=== PATIENT | female | born 1970 | race Caucasian/White ===

== ENCOUNTER 2017-12-08 08:05 | Day surgery (SDC) | payer BC, MEDICAID, OTHER ==
[~2017-12-08 08:05] MED LIST: Sodium Chloride 0.9% 10 ML Syringe FLUSH PRN; Sodium Chloride 0.9% 2.5 ML Syringe FLUSH PRN; Sugammadex Sodium 200 MG/2 ML VIAL ONE
--- NOTE | 2017-12-08 08:58 | PCM.PREANE ---
Preanesthetic Assessment - Anesthesia/Transfusion/Family Hx Anesthesia History: Prior Anesthesia Without Reaction Family History of Anesthesia Reaction: No Transfusion History: No Prior Transfusion(s) - Review of Systems General: No Symptoms Pulmonary: No Symptoms Cardiovascular: No Symptoms Gastrointestinal: No Symptoms Neurological: Headache Other: Reports: None - Physical Assessment NPO Status Date: 12/07/17 O2 Sat by Pulse Oximetry: 97 Respiratory Rate: 16 Vital Signs: Last Vital Signs Temp 36.6 C 12/08/17 08:16 Pulse 59 L 12/08/17 08:16 Resp 16 12/08/17 08:16 BP 124/78 12/08/17 08:16 Pulse Ox 97 12/08/17 08:16 Height: 1.6 m Weight: 75.75 kg ASA Class: 2 Mental Status: Alert & Oriented x3 Airway Class: Mallampati = 1 Dentition: Reports: Normal Dentition ROM/Head Extension: Full Lungs: Clear to Auscultation, Normal Respiratory Effort Cardiovascular: Regular Rate, Regular Rhythm - Lab Values: Laboratory Last Values WBC 8.85 K/uL (4.0-11.0) 12/07/17 11:36 RBC 4.56 M/uL (4.30-5.90) 12/07/17 11:36 Hgb 13.9 g/dL (12.0-16.0) 12/07/17 11:36 Hct 41.5 % (36.0-46.0) 12/07/17 11:36 MCV 91.0 fL (80.0-98.0) 12/07/17 11:36 MCH 30.5 pg (27.0-32.0) 12/07/17 11:36 MCHC 33.5 g/dL (31.0-37.0) 12/07/17 11:36 RDW Std Deviation 41.6 fl (28.0-62.0) 12/07/17 11:36 RDW Coeff of Evi 13 % (11.0-15.0) 12/07/17 11:36 Plt Count 359 K/uL (150-400) 12/07/17 11:36 MPV 10.10 fL (7.40-12.00) 12/07/17 11:36 Nucleated RBC % 0.0 /100WBC 12/07/17 11:36 Nucleated RBCs # 0 K/uL 12/07/17 11:36 Sodium 138 mmol/L (136-145) 12/07/17 11:36 Potassium 3.6 mmol/L (3.5-5.1) 12/07/17 11:36 Chloride 105 mmol/L (98-107) 12/07/17 11:36 Carbon Dioxide 26.3 mmol/L (21.0-32.0) 12/07/17 11:36 BUN 17 mg/dL (7.0-18.0) 12/07/17 11:36 Creatinine 1.1 mg/dL (0.6-1.0) H 12/07/17 11:36 Est Cr Clr Drug Dosing 51.18 mL/min 12/07/17 11:36 Estimated GFR (MDRD) 52.8 ml/min 12/07/17 11:36 Glucose 102 mg/dL (74-106) 12/07/17 11:36 Calcium 9.1 mg/dL (8.5-10.1) 12/07/17 11:36 HCG, Qual NEGATIVE (NEG) 12/07/17 11:36 Blood Type O POSITIVE 12/07/17 11:36 Antibody Screen NEGATIVE 12/07/17 11:36 - Allergies Allergies/Adverse Reactions: Allergies Allergy/AdvReac Type Severity Reaction Status Date / Time No Known Allergies Allergy Verified 12/08/17 08:46 - Anesthesia Plan Pre-Op Medication Ordered: None - Acknowledgements Anesthesia Type Planned: General Anesthesia Pt an Appropriate Candidate for the Planned Anesthesia: Yes Alternatives and Risks of Anesthesia Discussed w Pt/Guardian: Yes Pt/Guardian Understands and Agrees with Anesthesia Plan: Yes Additional Comments: PMH: hc of hep c, not active but not treated either, no longer needs thyroid replacement, has headache this am, wants no meds for it at this time PreAnesthesia Questionnaire Other HEENT History: wears glasses Cardiovascular History: Reports: Hypertension Respiratory History: Reports: Asthma Gastrointestinal History: Reports: Hiatal Hernia Other Gastrointestinal History: has Hepatitis C 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: Musculoskeletal History: Reports: Arthritis, Back Pain, Chronic, Fibromyalgia, Neck Pain, Chronic Neurological History: Reports: Migraines Psychiatric History: Reports: Anxiety, Depression - Past Surgical History Female Surgical History: Reports: Tubal Ligation - SUBSTANCE USE Smoking Status *Q: Current Every Day Smoker Tobacco Use Within Last Twelve Months: Cigarettes Days Per Week of Alcohol Use: 1 Recreational Drug Use History: No - HOME MEDS Home Medications: Home Meds Albuterol [Proventil HFA] 1 puff INH ASDIRECTED PRN 01/16/15 [History] busPIRone HCl [Buspirone HCl] 15 mg PO DAILY 01/16/15 [History] FLUoxetine HCl [Prozac] 20 mg PO DAILY 12/05/17 [History] Hydrochlorothiazide 25 mg PO DAILY 12/05/17 [History] - CURRENT (IN HOUSE) MEDS Current Meds: Current Medications Sodium Chloride (Saline Flush) 10 ml FLUSH ASDIRECTED PRN PRN Reason: Keep Vein Open Sodium Chloride (Saline Flush) 2.5 ml FLUSH ASDIRECTED PRN PRN Reason: Keep Vein Open
[2017-12-08] MEDS ORDERED: Acetaminophen 1,000 MG in Premix Bag 1 BAG IV ONE (10:27)
[2017-12-08] MEDS ORDERED: Midazolam 1 MG/ML 2 ML SDV ONE (11:28)
[2017-12-08] MEDS ORDERED: Propofol 200 MG/20 ML SDV ONE (11:28)
[2017-12-08] MEDS ORDERED: Ondansetron 4 MG/2 ML SDV ONE (11:29)
[2017-12-08] MEDS ORDERED: Lidocaine 2% 5 ML SDV ONE (11:29)
[2017-12-08] MEDS ORDERED: Glycopyrrolate 0.2 MG/ML SDV ONE (11:29)
[2017-12-08] MEDS ORDERED: Ketorolac 30 MG/ML SDV ONE (11:29)
[2017-12-08] MEDS ORDERED: fentaNYL 250 MCG/5 ML SDV ONE (11:29)
[2017-12-08] MEDS ORDERED: Rocuronium 10 MG/ML 10 ML Syringe ONE (11:29)
[2017-12-08] MEDS ORDERED: Morphine 4 MG/ML Syringe IVPUSH PRN (13:39)
[2017-12-08] MEDS ORDERED: Ondansetron 4 MG/2 ML SDV IVPUSH PRN (13:39)
[2017-12-08] MEDS ORDERED: Acetaminophen/oxyCODONE 325-5 MG Tab PO PRN (13:39)
[2017-12-08] MEDS ORDERED: Promethazine 25 MG/ML SDV IM PRN (13:39)
[2017-12-08] MEDS ORDERED: Ketorolac 30 MG/ML SDV IVPUSH ONE (13:39)
--- NOTE | 2017-12-08 13:44 | PCM.OPNOTE ---
- General Post-Op/Procedure Note Date of Surgery/Procedure: 12/08/17 Operative Procedure(s): TVH,bso Solyx TVTamd Cystoscopy Pre Op Diagnosis: Bleeding,MILADIS Post-Op Diagnosis: Same Anesthesia Technique: General ET Tube Primary Surgeon: Thang Alonzo Yield Analyst: Leslie Saldivar EBL in mLs: 100 Complications: None Condition: Good
[2017-12-08] MEDS ORDERED: HYDROmorphone 2 MG/ML SDV IVPUSH ONE (13:46)
[2017-12-08] MEDS: fentaNYL 100 MCG/2 ML SDV IVPUSH PRN ×2 (13:50→13:55)
--- NOTE | 2017-12-08 14:42 | PCM.POSTAN ---
POST ANESTHESIA ASSESSMENT - MENTAL STATUS Mental Status: Alert, Oriented - RESPIRATORY Respiratory Status: Respiratory Rate WNL, Airway Patent, O2 Saturation Stable - CARDIOVASCULAR CV Status: Pulse Rate WNL, Blood Pressure Stable - GASTROINTESTINAL GI Status: No Symptoms - PAIN Pain Score: 7 - POST OP HYDRATION Hydration Status: Adequate & Stable
[2017-12-08] MEDS: Acetaminophen/oxyCODONE 325-5 MG Tab PO PRN ×2 (15:43→20:04)
[2017-12-08] MEDS ORDERED: Ketorolac 30 MG/ML SDV IVPUSH PRN (20:00)
--- NOTE | 2017-12-09 04:36 | OR ---
SURGEON: Thang Alonzo MD DATE OF PROCEDURE: PREOPERATIVE DIAGNOSES: 1. Menometrorrhagia. 2. Stress urinary incontinence. POSTOPERATIVE DIAGNOSES: 1. Menometrorrhagia. 2. Stress urinary incontinence. OPERATION PERFORMED: Total vaginal hysterectomy, vaginal bilateral salpingo-oophorectomy, and tension- free TVT Solyx and cystoscopy. CAFETERIA MONITOR: WILVER Sharif ANESTHESIA: General endotracheal intubation INDICATION FOR SURGERY: Ray referred to the admit note. PROCEDURE IN DETAIL: The patient was brought to the OR, properly identified, and after adequate level of general anesthesia, the patient placed in lithotomy position, prepped and draped in sterile fashion as usual. A short weighted speculum was placed in the vagina, and straight catheter was used to empty the bladder and then a single- tooth tenaculum was applied to the cervix and then circular incision in the vaginal mucosa around the cervix was done. The posterior cul-de-sac was entered posteriorly, and the peritoneum and the vagina tagged with 2-0 Vicryl posteriorly. A short weighted speculum replaced with an extended long weighted speculum. The uterosacral ligament identified from both sides, clamped with a curved Zeppelin, transected, and suture ligated with 2-0 Vicryl pop-off. The same thing was done with the cardinal ligament and then the cervical vesicle space was entered, pushing the bladder away from the operative field and the peritoneal cavity was entered anteriorly. The broad ligament was clamped on both sides and transected and suture ligated with 2-0 Vicryl pop-off. The uterine vessel suture ligated at this step and then the round ligament was clamped with a curved Zeppelin, transected, and suture ligated with 2-0 Vicryl pop-off. Then, the uterus delivered posteriorly, and the superior pedicle on both sides clamped with 90 degree zeppelin and the tubes and ovary included with the specimen. The specimen was removed, and the superior pedicle tied twice with a free tie. Inspection of the operative field at this time shows no oozing, no bleeding. The uterosacral ligament and cardinal ligament anchored to the vagina at 3 and 9 o'clock for added vaginal support, and we proceeded to close the vagina with 2-0 Vicryl, interrupted [id number] sutures. Once that was finished, then attention was paid to the anterior vaginal wall and an inch beneath the urethra was infiltrated with copious amount of normal saline and incised midline with electrocautery and then the vaginal wall is dissected laterally in a tunneling fashion making room for the TVT, and then the TVT was in place with a due amount of tension to elevate the midurethral segment and then the incision in the anterior vaginal cuff was closed with 2-0 Vicryl continuous interlocking for hemostasis. While we were doing that, we asked the anesthesiologist to give the patient fluorescein, and cystoscopy was performed. The bladder was intact. Both ureteric orifices were seen with the dye coming from both of them, thus the patency of both ureters verified. Satisfied with these findings, the procedure was ended. The instrument and sponge count were correct. The patient tolerated the procedure well, went to recovery room in stable general condition. MAGDALENA OSEI /[id number]
[2017-12-09] MEDS: Acetaminophen/oxyCODONE 325-5 MG Tab PO PRN (05:22)
[2017-12-09 08:25] VITALS: BP 104/63
--- NOTE | 2017-12-09 09:19 | PCM.SURGPN ---
- General Info Date of Service: 12/09/17 POD#: 1 Functional Status: Reports: Pain Controlled - Review of Systems General: Reports: No Symptoms HEENT: Reports: No Symptoms Pulmonary: Reports: No Symptoms Cardiovascular: Reports: No Symptoms Gastrointestinal: Reports: No Symptoms Genitourinary: Reports: No Symptoms Musculoskeletal: Reports: No Symptoms Skin: Reports: No Symptoms Neurological: Reports: No Symptoms Psychiatric: Reports: No Symptoms - Patient Data Vitals - Most Recent: Last Vital Signs Temp 36.4 C 12/09/17 08:00 Pulse 54 L 12/09/17 08:00 Resp 18 12/09/17 08:00 BP 104/63 12/09/17 08:00 Pulse Ox 91 L 12/09/17 08:00 Weight - Most Recent: 75.75 kg I&O - Last 24 Hours: Intake & Output 12/08/17 12/09/17 12/09/17 22:59 06:59 14:59 Intake Total 640 Output Total 500 Balance 140 Lab Results Last 24 Hrs: Laboratory Results - last 24 hr 12/09/17 12/09/17 Range/Units 05:18 05:18 WBC 10.14 (4.0-11.0) K/uL RBC 3.91 L (4.30-5.90) M/uL Hgb 11.9 L (12.0-16.0) g/dL Hct 36.0 (36.0-46.0) % MCV 92.1 (80.0-98.0) fL MCH 30.4 (27.0-32.0) pg MCHC 33.1 (31.0-37.0) g/dL RDW Std Deviation 42.5 (28.0-62.0) fl RDW Coeff of Evi 13 (11.0-15.0) % Plt Count 301 (150-400) K/uL MPV 10.20 (7.40-12.00) fL Neut % (Auto) 58.5 (48.0-80.0) % Lymph % (Auto) 27.9 (16.0-40.0) % Ada % (Auto) 9.5 (0.0-15.0) % Eos % (Auto) 3.8 (0.0-7.0) % Baso % (Auto) 0.3 (0.0-1.5) % Neut # (Auto) 5.9 H (1.4-5.7) K/uL Lymph # (Auto) 2.8 H (0.6-2.4) K/uL [place] # (Auto) 1.0 H (0.0-0.8) K/uL Eos # (Auto) 0.4 (0.0-0.7) K/uL Baso # (Auto) 0.0 (0.0-0.1) K/uL Nucleated RBC % 0.0 /100WBC Nucleated RBCs # 0 K/uL Sodium 136 (136-145) mmol/L Potassium 3.4 L (3.5-5.1) mmol/L Chloride 103 (98-107) mmol/L Carbon Dioxide 27.4 (21.0-32.0) mmol/L BUN 18 (7.0-18.0) mg/dL Creatinine 1.1 H (0.6-1.0) mg/dL Est Cr Clr Drug Dosing 51.18 mL/min Estimated GFR (MDRD) 52.8 ml/min Glucose 125 H (74-106) mg/dL Calcium 8.5 (8.5-10.1) mg/dL Med Orders - Current: Current Medications Fentanyl (Sublimaze) 50 mcg IVPUSH Q5M PRN PRN Reason: Pain (severe 7-10) Stop: 12/09/17 13:46 Last Admin: 12/08/17 13:55 Dose: 50 mcg Ketorolac Tromethamine (Toradol) 30 mg IVPUSH Q6H PRN PRN Reason: Pain (severe 7-10) Stop: 12/13/17 20:01 Morphine Sulfate (Morphine) 4 mg IVPUSH Q2H PRN PRN Reason: Pain (severe 7-10) Ondansetron HCl (Zofran) 4 mg IVPUSH Q6H PRN PRN Reason: Nausea/Vomiting Oxycodone/Acetaminophen (Percocet 325-5 Mg) 1 tab PO Q4H PRN PRN Reason: Pain (moderate 4-6) Oxycodone/Acetaminophen (Percocet 325-5 Mg) 2 tab PO Q4H PRN PRN Reason: Pain (moderate 4-6) Last Admin: 12/09/17 05:22 Dose: 2 tab Promethazine HCl (Phenergan) 25 mg IM Q6H PRN PRN Reason: Nausea/Vomiting Sodium Chloride (Saline Flush) 10 ml FLUSH ASDIRECTED PRN PRN Reason: Keep Vein Open Sodium Chloride (Saline Flush) 2.5 ml FLUSH ASDIRECTED PRN PRN Reason: Keep Vein Open Discontinued Medications Fentanyl (Sublimaze) Confirm Administered Dose 250 mcg .ROUTE .STK-MED ONE Stop: 12/08/17 11:30 Glycopyrrolate (Robinul) Confirm Administered Dose 0.2 mg .ROUTE .STK-MED ONE Stop: 12/08/17 11:30 Hydromorphone HCl (Dilaudid) 2 mg IVPUSH ONETIME ONE Stop: 12/08/17 13:47 Last Admin: 12/08/17 14:10 Dose: 2 mg Acetaminophen 1,000 mg/ Premix 100 mls @ 400 mls/hr IV NOW ONE Stop: 12/08/17 10:41 Last Admin: 12/08/17 10:35 Dose: 400 mls/hr Ketorolac Tromethamine (Toradol) Confirm Administered Dose 30 mg .ROUTE .STK- MED ONE Stop: 12/08/17 11:30 Ketorolac Tromethamine (Toradol) 30 mg IVPUSH ONETIME ONE Stop: 12/08/17 13:40 Last Admin: 12/08/17 16:51 Dose: Not Given Lidocaine (Xylocaine-Mpf 2%) Confirm Administered Dose 5 ml .ROUTE .STK-MED ONE Stop: 12/08/17 11:30 Midazolam HCl (Versed 1 Mg/Ml) Confirm Administered Dose 2 mg .ROUTE .STK-MED ONE Stop: 12/08/17 11:29 Ondansetron HCl (Zofran) Confirm Administered Dose 4 mg .ROUTE .STK-MED ONE Stop: 12/08/17 11:30 Propofol (Diprivan 20 Ml) Confirm Administered Dose 200 mg .ROUTE .STK-MED ONE Stop: 12/08/17 11:29 Rocuronium [place] (Zemuron) Confirm Administered Dose 100 mg .ROUTE .STK-MED ONE Stop: 12/08/17 11:30 - Exam Wound/Incisions: Healing Well General: Alert, Oriented HEENT: Pupils Equal Neck: Supple Lungs: Clear to Auscultation, Normal Respiratory Effort Cardiovascular: Regular Rate, Regular Rhythm GI/Abdominal Exam: Normal Bowel Sounds, Soft, Non-Tender, No Organomegaly, No Distention, No Abnormal Bruit, No Mass, Pelvis Stable Extremities: Normal Inspection, Normal Range of Motion, Non-Tender, No Pedal Edema, Normal Capillary Refill Skin: Warm, Dry, Intact Neurological: No New Focal Deficit Psy/Mental Status: Alert, Normal Affect, Normal Mood - Problem List Review Problem List Initiated/Reviewed/Updated: Yes - My Orders Last 24 Hours: Active Orders 24 hr Category Date Time Status Patient Status [ADT] Routine ADT 12/08/17 13:39 Active Bradycardia-Neuroaxis [employer] [RC] ROUTINE Care 12/08/17 13:46 Active Hypertension-Neuroaxis [employer] [RC] ROUTINE Care 12/08/17 13:46 Active Hypotension-Neuroaxis [employer] [RC] ROUTINE Care 12/08/17 13:46 Active Notify Provider Vital Signs [RC] ASDIRECTED Care 12/08/17 13:39 Active RT Incentive Spirometry [RC] Q2HWA Care 12/08/17 13:39 Active Up With Assistance [RC] PER UNIT ROUTINE Care 12/08/17 13:39 Active Up ad [place] [RC] PER UNIT ROUTINE Care 12/08/17 13:39 Active Regular Diet [DIET] Diet 12/08/17 Dinner Active Acetaminophen/oxyCODONE [Percocet 325-5 MG] Med 12/08/17 13:39 Active 1 tab PO Q4H PRN Acetaminophen/oxyCODONE [Percocet 325-5 MG] Med 12/08/17 13:39 Active 2 tab PO Q4H PRN Ketorolac [Toradol] Med 12/08/17 20:00 Active 30 mg IVPUSH Q6H PRN Morphine Med 12/08/17 13:39 Active 4 mg IVPUSH Q2H PRN Ondansetron [Zofran] Med 12/08/17 13:39 Active 4 mg IVPUSH Q6H PRN Promethazine [Phenergan] Med 12/08/17 13:39 Active 25 mg IM Q6H PRN fentaNYL [Sublimaze] Med 12/08/17 13:46 Active 50 mcg IVPUSH Q5M PRN Peripheral IV Discontinue [OM.PC] Routine Oth 12/08/17 13:39 Ordered Sequential Compression Device [OM.PC] Per Unit Routine Oth 12/08/17 13:39 Ordered Resuscitation Status Routine Resus Stat 12/08/17 13:39 Ordered Medication Orders Fentanyl (Sublimaze) 50 mcg IVPUSH Q5M PRN PRN Reason: Pain (severe 7-10) Stop: 12/09/17 13:46 Last Admin: 12/08/17 13:55 Dose: 50 mcg Admin: 12/08/17 13:50 Dose: 50 mcg Ketorolac Tromethamine (Toradol) 30 mg IVPUSH Q6H PRN PRN Reason: Pain (severe 7-10) Stop: 12/13/17 20:01 Morphine Sulfate (Morphine) 4 mg IVPUSH Q2H PRN PRN Reason: Pain (severe 7-10) Ondansetron HCl (Zofran) 4 mg IVPUSH Q6H PRN PRN Reason: Nausea/Vomiting Oxycodone/Acetaminophen (Percocet 325-5 Mg) 1 tab PO Q4H PRN PRN Reason: Pain (moderate 4-6) Oxycodone/Acetaminophen (Percocet 325-5 Mg) 2 tab PO Q4H PRN PRN Reason: Pain (moderate 4-6) Last Admin: 12/09/17 05:22 Dose: 2 tab Admin: 12/08/17 20:04 Dose: 2 tab Admin: 12/08/17 15:43 Dose: 2 tab Promethazine HCl (Phenergan) 25 mg IM Q6H PRN PRN Reason: Nausea/Vomiting Sodium Chloride (Saline Flush) 10 ml FLUSH ASDIRECTED PRN PRN Reason: Keep Vein Open Sodium Chloride (Saline Flush) 2.5 ml FLUSH ASDIRECTED PRN PRN Reason: Keep Vein Open - Assessment Assessment (Free Text/Narrative):: Status post total vaginal hysterectomy and vaginal bilateral salpingo- oophorectomy and TVT for menometrorrhagia and stress urinary incontinence postoperative day 1 the patient is doing well with STABLE LAB WORK IS WITHIN NORMAL LIMITS SHE IS VOIDING WITHOUT ANY PROBLEM SHE HAVE MINIMUM BLEEDING AND SHE IS ON REGULAR DIET TOLERATED VERY WELL - Plan Plan (Free Text/Narrative):: I'm sending the patient home today prescription for Percocet 7.5/325 was given to the patient for postoperative pain postoperative instruction is given to her she is to come to the office in 10 days for postoperative examination and follow
--- NOTE | 2017-12-09 09:20 | PCM.DCSUM1 ---
Discharge Summary - Discharge Data Discharge Date: 12/09/17 Discharge Disposition: Home, Self-Care 01 Condition: Good - Patient Summary/Data Operative Procedure(s) Performed: TVH,bso Solyx TVTamd Cystoscopy - Patient Instructions Diet: Usual Diet as Tolerated Driving: Do Not Drive Showering/Bathing: May Shower Notify Provider of: Fever, Increased Pain, Nausea and/or Vomiting - Discharge Plan Prescriptions/Med Rec: oxyCODONE HCl/Acetaminophen [Percocet 7.5-325 mg Tablet] 1 each PO Q4H PRN #15 tablet PRN Reason: Pain Home Medications: Home Meds Albuterol [Proventil HFA] 1 puff INH ASDIRECTED PRN 01/16/15 [History] busPIRone HCl [Buspirone HCl] 15 mg PO DAILY 01/16/15 [History] FLUoxetine HCl [Prozac] 20 mg PO DAILY 12/05/17 [History] Hydrochlorothiazide 25 mg PO DAILY 12/05/17 [History] oxyCODONE HCl/Acetaminophen [Percocet 7.5-325 mg Tablet] 1 each PO Q4H PRN #15 tablet 12/09/17 [Rx] Patient Handouts: Acetaminophen; Oxycodone tablets, Vaginal Hysterectomy, Care After Referrals: Thang Alonzo MD [Physician] - 12/19/17 10:15 am - General Info Date of Service: 12/09/17 Functional Status: Reports: Pain Controlled - Review of Systems General: Reports: No Symptoms HEENT: Reports: No Symptoms Pulmonary: Reports: No Symptoms Cardiovascular: Reports: No Symptoms Gastrointestinal: Reports: No Symptoms Genitourinary: Reports: No Symptoms Musculoskeletal: Reports: No Symptoms Skin: Reports: No Symptoms Neurological: Reports: No Symptoms Psychiatric: Reports: No Symptoms - Patient Data Vitals - Most Recent: Last Vital Signs Temp 36.4 C 12/09/17 08:00 Pulse 54 L 12/09/17 08:00 Resp 18 12/09/17 08:00 BP 104/63 12/09/17 08:00 Pulse Ox 91 L 12/09/17 08:00 Weight - Most Recent: 75.75 kg I&O - Last 24 hours: Intake & Output 12/08/17 12/09/17 12/09/17 22:59 06:59 14:59 Intake Total 640 Output Total 500 Balance 140 Lab Results - Last 24 hrs: Laboratory Results - last 24 hr 18 18 Range/Units 05:18 05:18 WBC 10.14 (4.0-11.0) K/uL RBC 3.91 L (4.30-5.90) M/uL Hgb 11.9 L (12.0-16.0) g/dL Hct 36.0 (36.0-46.0) % MCV 92.1 (80.0-98.0) fL MCH 30.4 (27.0-32.0) pg MCHC 33.1 (31.0-37.0) g/dL RDW Std Deviation 42.5 (28.0-62.0) fl RDW Coeff of Evi 13 (11.0-15.0) % Plt Count 301 (150-400) K/uL MPV 10.20 (7.40-12.00) fL Neut % (Auto) 58.5 (48.0-80.0) % Lymph % (Auto) 27.9 (16.0-40.0) % [place] % (Auto) 9.5 (0.0-15.0) % Eos % (Auto) 3.8 (0.0-7.0) % Baso % (Auto) 0.3 (0.0-1.5) % Neut # (Auto) 5.9 H (1.4-5.7) K/uL Lymph # (Auto) 2.8 H (0.6-2.4) K/uL [place] # (Auto) 1.0 H (0.0-0.8) K/uL Eos # (Auto) 0.4 (0.0-0.7) K/uL Baso # (Auto) 0.0 (0.0-0.1) K/uL Nucleated RBC % 0.0 /100WBC Nucleated RBCs # 0 K/uL Sodium 136 (136-145) mmol/L Potassium 3.4 L (3.5-5.1) mmol/L Chloride 103 (98-107) mmol/L Carbon Dioxide 27.4 (21.0-32.0) mmol/L BUN 18 (7.0-18.0) mg/dL Creatinine 1.1 H (0.6-1.0) mg/dL Est Cr Clr Drug Dosing 51.18 mL/min Estimated GFR (MDRD) 52.8 ml/min Glucose 125 H (74-106) mg/dL Calcium 8.5 (8.5-10.1) mg/dL Med Orders - Current: Current Medications Fentanyl (Sublimaze) 50 mcg IVPUSH Q5M PRN PRN Reason: Pain (severe 7-10) Stop: 12/09/17 13:46 Last Admin: 12/08/17 13:55 Dose: 50 mcg Ketorolac Tromethamine (Toradol) 30 mg IVPUSH Q6H PRN PRN Reason: Pain (severe 7-10) Stop: 12/13/17 20:01 Morphine Sulfate (Morphine) 4 mg IVPUSH Q2H PRN PRN Reason: Pain (severe 7-10) Ondansetron HCl (Zofran) 4 mg IVPUSH Q6H PRN PRN Reason: Nausea/Vomiting Oxycodone/Acetaminophen (Percocet 325-5 Mg) 1 tab PO Q4H PRN PRN Reason: Pain (moderate 4-6) Oxycodone/Acetaminophen (Percocet 325-5 Mg) 2 tab PO Q4H PRN PRN Reason: Pain (moderate 4-6) Last Admin: 12/09/17 05:22 Dose: 2 tab Promethazine HCl (Phenergan) 25 mg IM Q6H PRN PRN Reason: Nausea/Vomiting Sodium Chloride (Saline Flush) 10 ml FLUSH ASDIRECTED PRN PRN Reason: Keep Vein Open Sodium Chloride (Saline Flush) 2.5 ml FLUSH ASDIRECTED PRN PRN Reason: Keep Vein Open Discontinued Medications Fentanyl (Sublimaze) Confirm Administered Dose 250 mcg .ROUTE .STK-MED ONE Stop: 12/08/17 11:30 Glycopyrrolate (Robinul) Confirm Administered Dose 0.2 mg .ROUTE .STK-MED ONE Stop: 12/08/17 11:30 Hydromorphone HCl (Dilaudid) 2 mg IVPUSH ONETIME ONE Stop: 12/08/17 13:47 Last Admin: 12/08/17 14:10 Dose: 2 mg Acetaminophen 1,000 mg/ Premix 100 mls @ 400 mls/hr IV NOW ONE Stop: 12/08/17 10:41 Last Admin: 12/08/17 10:35 Dose: 400 mls/hr Ketorolac Tromethamine (Toradol) Confirm Administered Dose 30 mg .ROUTE .STK- MED ONE Stop: 12/08/17 11:30 Ketorolac Tromethamine (Toradol) 30 mg IVPUSH ONETIME ONE Stop: 12/08/17 13:40 Last Admin: 12/08/17 16:51 Dose: Not Given Lidocaine (Xylocaine-Mpf 2%) Confirm Administered Dose 5 ml .ROUTE .STK-MED ONE Stop: 12/08/17 11:30 Midazolam HCl (Versed 1 Mg/Ml) Confirm Administered Dose 2 mg .ROUTE .STK-MED ONE Stop: 12/08/17 11:29 Ondansetron HCl (Zofran) Confirm Administered Dose 4 mg .ROUTE .STK-MED ONE Stop: 12/08/17 11:30 Propofol (Diprivan 20 Ml) Confirm Administered Dose 200 mg .ROUTE .STK-MED ONE Stop: 12/08/17 11:29 Rocuronium [place] (Zemuron) Confirm Administered Dose 100 mg .ROUTE .STK-MED ONE Stop: 12/08/17 11:30 - Exam General: Reports: Alert, Oriented HEENT: Reports: Pupils Equal, Pupils Reactive, EOMI, Mucous Membr. Moist/[place] Neck: Reports: Supple Lungs: Reports: Clear to Auscultation, Normal Respiratory Effort Cardiovascular: Reports: Regular Rate, Regular Rhythm GI/Abdominal Exam: Normal Bowel Sounds, Soft, Non-Tender, No Organomegaly, No Distention, No Abnormal Bruit, No Mass, Pelvis Stable (Female) Exam: Normal External Exam, Normal Speculum Exam, Normal Bimanual Exam Rectal (Female) Exam: Normal Exam, Normal Rectal Tone Back Exam: Reports: Normal Inspection, Full Range of Motion Extremities: Normal Inspection, Normal Range of Motion, Non-Tender, No Pedal Edema, Normal Capillary Refill Skin: Reports: Warm, Dry, Intact Wound/Incisions: Reports: Healing Well Neurological: Reports: No New Focal Deficit Psy/Mental Status: Reports: Alert, Normal Affect, Normal Mood
== END 2017-12-09 09:38 | disposition home or self-care (01) ==
LOC: MW.SDS 08:05 → MW.MS 15:11 → MW.SDS 12-09 09:38
PROVIDERS: ATTEND Obstetrics & Gynecology
DX: D25.1 Intramural leiomyoma of uterus (principal); N39.3 Stress incontinence (female) (male); N83.292 Other ovarian cyst, left side; N83.291 Other ovarian cyst, right side; N92.1 Excessive and frequent menstruation with irregular cycle; F17.210 Nicotine dependence, cigarettes, uncomplicated; Z79.899 Other long term (current) drug therapy
CPT/HCPCS: 36415; 57288; 58260; 80048; 84703; 85025; 85027; 86850; 86900; 86901; A9270; J1170; J1885; J2250; J2405; J3010; 88307; J2704

== ENCOUNTER 2018-08-15 22:18 | Emergency (ER) | payer OTHER ==
[2018-08-15] MEDS ORDERED: Diphtheria,Pertussis(Acell),Tetanus Vaccine 0.5 ML Syringe IM ONE (22:46)
[2018-08-15] MEDS ORDERED: Cephalexin 500 MG Cap PO ONE (22:46)
[2018-08-15] MEDS ORDERED: Lidocaine 1% 10 ML MDV INJECT ONE (22:46)
[2018-08-15] MEDS ORDERED: Bacitracin Oint 1 GM U/D Packet TOP ONE (22:47)
--- NOTE | 2018-08-15 22:51 | EDM.PDOC ---
ED HPI GENERAL MEDICAL PROBLEM - General Chief Complaint: Laceration Stated Complaint: PT HURT RT HAND Time Seen by Provider: 08/15/18 22:40 - History of Present Illness INITIAL COMMENTS - FREE TEXT/NARRATIVE: HISTORY AND PHYSICAL: History of present illness: The patient is a 48-year-old female with no stated existing systemic complaints today who had a normal day until she was trying to get keys out of the event technician of a car that was stopped and she cut her right index finger and the base of her third finger on the right hand. Patient is unsure of her last tetanus shot and thinks it might be 5 years ago and she is right-hand dominant. She had no complaints of any systemic problems prior to these events and complains of pain at the lacerations and seeks evaluation. She is able to flex and extend at all of her digits but she says that the tip of her index finger feels a little bit numb. She has no other injuries or complaints. Review of systems: As per history of present illness and below otherwise all systems reviewed and negative. Past medical history: As per history of present illness and as reviewed below otherwise noncontributory. Surgical history: As per history of present illness and as reviewed below otherwise noncontributory. Social history: No reported history of drug or alcohol abuse. Family history: As per history of present illness and as reviewed below otherwise noncontributory. Physical exam: General: Well-developed well-nourished female who is nontoxic and vital signs reviewed by me HEENT: Atraumatic, normocephalic, negative for conjunctival pallor or scleral icterus, mucous membranes moist, throat clear, neck supple, nontender, trachea midline. Lungs: Clear to auscultation, breath sounds equal bilaterally, chest nontender. Heart: S1S2, regular rate and rhythm no overt murmurs. Abdomen: Soft, nondistended, nontender and bowel sounds are normoactive Pelvis: Deferred Genitourinary: Deferred. Rectal: Deferred. Extremities: Atraumatic full range of motion of all extremities with the exception of the right hand. At the right index finger over the DIP flexure there is a 3 cm laceration which is jagged and irregular that goes to the subcutaneous fat. The patient has intact flexion at the superficialis and profundus tendons and there is no active bleeding. The tissue is very damaged in this region. There is a second laceration measuring 3 cm at the base of the third digit over the MCP which is more linear and only extend to the subcutaneous tissue. All other digits are intact and the patient has full flexion-extension at all digits. Cap refill Neurovascular unremarkable. Neuro: Awake, alert, oriented. Cranial nerves II through XII unremarkable. Cerebellum unremarkable. Motor and sensory unremarkable throughout. Exam nonfocal. Diagnostics: X-ray right hand Therapeutics: Keflex bacitracin and dressings suture repair Tdap Procedure note: After x-ray was performed and the wound was irrigated and cleansed by nursing 1% lidocaine without epinephrine was infused in each of the lacerations and the wound was explored. The wound at the base of the third MCP was closed in a simple interrupted fashion of sutures for a total number of # 6 sutures of 4-0 chromic. The second laceration at the flexure of the index finger was then explored and no foreign bodies were appreciated. On exploration the flexor tendon was visualized and the patient was able to engage with my direct visualization and there appeared to be no injury to this. The skin edges were reapproximated using a total number of # 6 Singh of 4-0 chromic in a simple interrupted fashion. The wound in this region was very macerated and irregular so the best reapproximation was achieved with minimal debridement. The patient tolerated the procedure well and there are no complications and bacitracin and a dressing were placed on both lacerations. Impression: 2 lacerations of right hand, index finger and base of middle finger Definitive disposition and diagnosis as appropriate pending reevaluation and review of above. Right Hand Pain Score (Numeric/FACES): 6 - Related Data Allergies Allergy/AdvReac Type Severity Reaction Status Date / Time No Known Allergies Allergy Verified 08/15/18 22:37 Home Meds: Home Meds . 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: Reports: Musculoskeletal History: Reports: Arthritis, Back Pain, Chronic, Fibromyalgia, Neck Pain, Chronic Neurological History: Reports: Migraines Psychiatric History: Reports: Anxiety, Bipolar, Depression, PTSD, Schizophrenia Endocrine/Metabolic History: Reports: None Hematologic History: Reports: None Immunologic History: Reports: None Oncologic (Cancer) History: Reports: None Dermatologic History: Reports: None - Infectious Disease History Infectious Disease History: Reports: Hepatitis C - Past Surgical History Head Surgeries/Procedures: Reports: None HEENT Surgical History: Reports: None Cardiovascular Surgical History: Reports: None Respiratory Surgical History: Reports: None GI Surgical History: Reports: None Female Surgical History: Reports: Tubal Ligation Endocrine Surgical History: Reports: None Neurological Surgical History: Reports: None Musculoskeletal Surgical History: Reports: None Oncologic Surgical History: Reports: None Dermatological Surgical History: Reports: None Social & Family History - Family History Family Medical History: Noncontributory - Tobacco Use Smoking Status *Q: Current Some Day Smoker Years of Tobacco use: 25 Packs/Tins Daily: 0.5 - Caffeine Use Caffeine Use: Reports: None - Alcohol Use Days Per Week of Alcohol Use: 1 Number of Drinks Per Day: 1 Total Drinks Per Week: 1 - Recreational Drug Use Recreational Drug Use: No ED ROS GENERAL - Review of Systems Review Of Systems: ROS reveals no pertinent complaints other than HPI. ED EXAM, SKIN/RASH Exam: See Below (See dictation) Course - Vital Signs Last Recorded V/S: Last Vital Signs Temp 36.6 C 08/15/18 22:32 Pulse 86 08/15/18 22:32 Resp 18 08/15/18 22:32 BP 114/96 H 08/15/18 22:32 Pulse Ox 98 08/15/18 22:32 - Orders/Labs/Meds Orders: Active Orders 24 hr Category Date Time Status Vaccines to be Administered [RC] PER UNIT ROUTINE Care 08/15/18 22:47 Active Hand Comp Min 3V Rt [CR] Stat Exams 08/15/18 22:46 Taken Meds: Medications Discontinued Medications Generic Name Dose Route Start Last Admin Trade Name Yogi PRN Reason Stop Dose Admin Hydrocodone Bitart/Acetaminophen 1 tab 08/15/18 23:53 08/16/18 00:01 Randle 325-5 Mg PO 08/15/18 23:54 1 tab ONETIME ONE Administration Bacitracin 1 dose 08/15/18 22:47 08/16/18 00:11 Bacitracin Oint 1 Gm TOP 08/15/18 22:48 1 dose ONETIME ONE Administration Cephalexin 500 mg 08/15/18 22:46 08/15/18 23:08 Keflex PO 08/15/18 22:47 500 mg ONETIME ONE Administration Diphtheria/Tetanus/Acell Pertussis 0.5 ml 08/15/18 22:46 08/15/18 23:04 Adacel IM 08/15/18 22:47 0.5 ml .ONCE ONE Administration Lidocaine HCl Confirm 08/15/18 23:07 08/16/18 00:02 Xylocaine-Mpf 1% Administered 08/15/18 23:08 5 mls/hr Dose Administration 5 mls @ as directed .ROUTE .STK-MED ONE Lidocaine HCl 10 ml 08/15/18 22:46 08/16/18 00:03 Xylocaine 1% INJECT 08/15/18 22:47 Not Given ONETIME ONE Departure - Departure Time of Disposition: 01:03 Disposition: Home, Self-Care 01 Condition: Good Clinical Impression: Hand laceration Qualifiers: Encounter type: initial encounter Foreign body presence: without foreign body Laterality: right Qualified Code(s): S61.411A - Laceration without foreign body of right hand, initial encounter - Discharge Information Referrals: PCP,None [Primary Care Provider] - Forms: ED Department Discharge Additional Instructions: The following information is given to patients seen in the emergency department who are being discharged to home. This information is to outline your options for follow-up care. We provide all patients seen in our emergency department with a follow-up referral. The need for follow-up, as well as the timing and circumstances, are variable depending upon the specifics of your emergency department visit. If you don't have a primary care physician on staff, we will provide you with a referral. We always advise you to contact your personal physician following an emergency department visit to inform them of the circumstance of the visit and for follow-up with them and/or the need for any referrals to a consulting specialist. The emergency department will also refer you to a specialist when appropriate. This referral assures that you have the opportunity for followup care with a specialist. All of these measure are taken in an effort to provide you with optimal care, which includes your followup. Under all circumstances we always encourage you to contact your private physician who remains a resource for coordinating your care. When calling for followup care, please make the office aware that this follow-up is from your recent emergency room visit. If for any reason you are refused follow-up, please contact the [facility] emergency department at and ask to speak to the emergency department charge nurse. [facility] Specialty clinic-Plastic Surgery and Hand Surgery Professional [address] [address] The sutures that were placed today will dissolve on their own or you can have them removed as you choose in 10 days. Keep the dressing that was placed on in the ED for the next 24 hours and then remove and cleanse with mild soap and water pat dry and apply bacitracin or Neosporin. Please leave open to air as much as possible and do not use Band-Aids. If you must cover the areas please use gauze dressing. Take antibiotics until they're finished and please call and schedule a follow-up appointment with our hand surgeon. You may call tomorrow morning for this appointment. Return to ER as needed as discussed. - My Orders Last 24 Hours: My Active Orders 08/15/18 22:46 Hand Comp Min 3V Rt [CR] Stat 08/15/18 22:47 Vaccines to be Administered [RC] PER UNIT ROUTINE - Assessment/Plan Last 24 Hours: My Active Orders 08/15/18 22:46 Hand Comp Min 3V Rt [CR] Stat 08/15/18 22:47 Vaccines to be Administered [RC] PER UNIT ROUTINE
[2018-08-15] MEDS ORDERED: Acetaminophen/HYDROcodone 325-5 MG Tab PO ONE (23:53)
[2018-08-16 01:32] VITALS: BP 140/89
--- NOTE | 2018-08-16 13:12 | CR ---
EXAM DATE: 08/15/18 PATIENT'S AGE: 48 Patient: ROLF GARCIA Facility: [place], [place] Site . Site : 1970 Study: XRay Extremity Right hand [id number]/[id number] 11:12:12 PM Ordering Physician: Inder Belle Final Report: Indication: Injury and pain Technique: views Comparison: None Findings: Bones: Alignment is normal. No fractures or bone lesions. Joint spaces: Mild arthritic changes are present in the IP joints. Soft tissues: Unremarkable. Impression: No sign of acute injury. Dictated by Saqib Baker MD @ Aug 15 2018 11:43PM (Electronic Signature) Report Signed by Proxy. ALLYSSA
== END 2018-08-16 01:15 | disposition home or self-care (01) ==
LOC: MW.ED 22:18
DX: S61.210A Laceration without foreign body of right index finger without damage to nail, initial encounter (principal); S61.411A Laceration without foreign body of right hand, initial encounter; I10 Essential (primary) hypertension; F17.210 Nicotine dependence, cigarettes, uncomplicated; Z23 Encounter for immunization; Z98.51 Tubal ligation status; W26.8XXA Contact with other sharp object(s), not elsewhere classified, initial encounter
CPT/HCPCS: 12002; 73130; 90471; 90715; 99283; A9270

== ENCOUNTER 2019-04-19 01:20 | Emergency (ER) | payer MEDICAID, OTHER ==
[2019-04-19] MEDS ORDERED: Sodium Chloride 0.9% 2.5 ML Syringe FLUSH PRN (01:40)
[2019-04-19] MEDS ORDERED: Sodium Chloride 0.9% 10 ML Syringe FLUSH PRN (01:40)
[2019-04-19] MEDS ORDERED: Ketorolac 30 MG/ML SDV IVPUSH ONE (01:41)
[2019-04-19] MEDS ORDERED: Sodium Chloride 0.9% 1,000 ML IV ONE (01:41)
[2019-04-19] MEDS ORDERED: Morphine 2 MG/ML Syringe IVPUSH ONE (01:41)
[2019-04-19] MEDS ORDERED: Ondansetron 4 MG/2 ML SDV IVPUSH ONE (01:41)
--- NOTE | 2019-04-19 01:45 | EDM.PDOC ---
ED HPI GENERAL MEDICAL PROBLEM - General Chief Complaint: General Stated Complaint: UTI/BLADDER INFECTION Time Seen by Provider: 04/19/19 01:37 - History of Present Illness INITIAL COMMENTS - FREE TEXT/NARRATIVE: HISTORY AND PHYSICAL: History of present illness: The patient is a 49-year-old female who is a history of a total abdominal hysterectomy but no other abdominal surgeries and no GI or history who presents with complaints of right upper abdominal pain overall malaise and fatigue ever since starting an antibiotic on April 16. She says that she saw Dr. Alonzo in the clinic who did a urine test and she was told she had a UTI and she was placed on nitrofurantoin. She says that ever since she started taking that medication she started having generalized malaise body aches and now this right-sided abdominal pain more in the right upper abdomen all of which were not present prior to starting antibiotic. According to the computer the patient did have a UA but he did not have any microscopic nor a urine culture. The patient has no history of kidney stones and does not have [place] flank pain but she says that she feels like she's having discomfort with breathing and moving and she overall just feels very poorly. She has been eating and drinking normally and passing her urine without issues and having no diarrhea. She has no chest pain per se and says that she just has this overall discomfort with her breathing. She feels as if her chest discomfort is originating from her upper abdomen. She's not passing out or blacking out and she has no documented fever at home but has felt very cold over the last 24 hours. Review of systems: As per history of present illness and below otherwise all systems reviewed and negative. Past medical history: As per history of present illness and as reviewed below otherwise noncontributory. Surgical history: As per history of present illness and as reviewed below otherwise noncontributory. Social history: No reported history of drug or alcohol abuse. Family history: As per history of present illness and as reviewed below otherwise noncontributory. Physical exam: General: Well-developed well-nourished female who is nontoxic and vital signs are noted by me HEENT: Atraumatic, normocephalic, negative for conjunctival pallor or scleral icterus, mucous membranes moist, throat clear, neck supple, nontender, trachea midline. Lungs: Clear to auscultation, breath sounds equal bilaterally, chest nontender. No wheezing stridor or work of breathing Heart: S1S2, regular rate and rhythm no overt murmurs Abdomen: Soft, nondistended, bowel sounds are hypoactive and there is no tympany on percussion. There is diffuse right-sided abdominal tenderness more in the right upper and mid quadrants but no lower abdominal tenderness and no rebound or guarding. Negative for masses or hepatosplenomegaly. Negative for costovertebral tenderness. Pelvis: Stable nontender. Genitourinary: Deferred. Rectal: Deferred. Extremities: Atraumatic, negative for cords or calf pain. Neurovascular unremarkable. Neuro: Awake, alert, oriented. Cranial nerves II through XII unremarkable. Cerebellum unremarkable. Motor and sensory unremarkable throughout. Exam nonfocal. Diagnostics: UA urine culture CBC CMP lactic acid chest x-ray CT scan of the abdomen and pelvis Therapeutics: IV fluids Toradol Zofran and morphine Levaquin Please note that the patient's UA today is after 3 days of nitrofurantoin. The patient and at bedside were made aware of all testing results including the WBC count of 17.35 a normal lactic acid and the CT scan results indicating a right pyelonephritis which is localized. She was also made aware of the right acetabular area of sclerosis and/or bony island. She is saying that she is feeling better but she is still overall achy and shaky. I have offered her admission to the hospital but she is deferring at this time and would like to go home. I will give her a dose of Levaquin here and change her antibiotics to Levaquin for home and a urine culture has been sent. She does have a provider for follow-up care at [facility], Ginny Ortiz. I've advised close follow- up with her and reasons to return to the ED. Impression: Right pyelonephritis Definitive disposition and diagnosis as appropriate pending reevaluation and review of above. generalized Pain Score (Numeric/FACES): 10 - Related Data Allergies Allergy/AdvReac Type Severity Reaction Status Date / Time No Known Allergies Allergy Verified 04/19/19 01:35 Home Meds: Home Meds Nitrofurantoin Macrocrystal [Macrodantin] 100 mg PO BID 04/19/19 [History] Past Medical History HEENT History: Reports: Other (See Below) Other HEENT History: wears glasses Cardiovascular History: Reports: Hypertension Respiratory History: Reports: Asthma Gastrointestinal History: Reports: Hiatal Hernia Other Gastrointestinal History: has Hepatitis C Genitourinary History: Reports: None DIPPER FISH History: Reports: Musculoskeletal History: Reports: Arthritis, Back Pain, Chronic, Fibromyalgia, Neck Pain, Chronic Neurological History: Reports: Migraines Psychiatric History: Reports: Anxiety, Bipolar, Depression, PTSD, Schizophrenia Endocrine/Metabolic History: Reports: None Hematologic History: Reports: None Immunologic History: Reports: None Oncologic (Cancer) History: Reports: None Dermatologic History: Reports: None - Infectious Disease History Infectious Disease History: Reports: Hepatitis C - Past Surgical History Head Surgeries/Procedures: Reports: None HEENT Surgical History: Reports: None Cardiovascular Surgical History: Reports: None Respiratory Surgical History: Reports: None GI Surgical History: Reports: None Female Surgical History: Reports: Tubal Ligation Endocrine Surgical History: Reports: None Neurological Surgical History: Reports: None Musculoskeletal Surgical History: Reports: None Oncologic Surgical History: Reports: None Dermatological Surgical History: Reports: None Social & Family History - Family History Family Medical History: Noncontributory - Caffeine Use Caffeine Use: Reports: None ED ROS GENERAL - Review of Systems Review Of Systems: ROS reveals no pertinent complaints other than HPI. ED EXAM, GENERAL - Physical Exam Exam: See Below (See dictation) Course - Vital Signs Last Recorded V/S: Last Vital Signs Temp 37.0 C 04/19/19 01:36 Pulse 79 04/19/19 01:36 Resp 18 04/19/19 01:36 BP 141/86 H 04/19/19 01:36 Pulse Ox 96 04/19/19 01:36 - Orders/Labs/Meds Orders: Active Orders 24 hr Category Date Time Status CULTURE URINE [RM] Stat Lab 04/19/19 02:51 Received Levofloxacin/Dextrose 5%-Water [Levaquin in D5W 500 MG/ Med 04/19/19 04:06 Active 100 ML] 500 mg Premix Bag 1 bag IV ONETIME Sodium Chloride 0.9% [Saline Flush] Med 04/19/19 01:40 Active 10 ml FLUSH ASDIRECTED PRN Sodium Chloride 0.9% [Saline Flush] Med 04/19/19 01:40 Active 2.5 ml FLUSH ASDIRECTED PRN Saline Lock Insert [OM.PC] Stat Oth 04/19/19 01:40 Ordered Medication Orders Levofloxacin/Dextrose 500 mg/ (Premix) 100 mls @ 100 mls/hr IV ONETIME ONE Stop: 04/19/19 05:05 Sodium Chloride (Saline Flush) 10 ml FLUSH ASDIRECTED PRN PRN Reason: Keep Vein Open Sodium Chloride (Saline Flush) 2.5 ml FLUSH ASDIRECTED PRN PRN Reason: Keep Vein Open Labs: Laboratory Tests 04/19/19 04/19/19 04/19/19 Range/Units 02:12 02:12 02:45 WBC 17.35 H (4.0-11.0) K/uL RBC 4.40 (4.30-5.90) M/uL Hgb 13.5 (12.0-16.0) g/dL Hct 39.9 (36.0-46.0) % MCV 90.7 (80.0-98.0) fL MCH 30.7 (27.0-32.0) pg MCHC 33.8 (31.0-37.0) g/dL RDW Std Deviation 41.8 (28.0-62.0) fl RDW Coeff of Evi 13 (11.0-15.0) % Plt Count 278 (150-400) K/uL MPV 10.60 (7.40-12.00) fL Neut % (Auto) 78.3 (48.0-80.0) % Lymph % (Auto) 9.8 L (16.0-40.0) % Ralls % (Auto) 11.5 (0.0-15.0) % Eos % (Auto) 0.2 (0.0-7.0) % Baso % (Auto) 0.2 (0.0-1.5) % Neut # (Auto) 13.6 H (1.4-5.7) K/uL Lymph # (Auto) 1.7 (0.6-2.4) K/uL Ralls # (Auto) 2.0 H (0.0-0.8) K/uL Eos # (Auto) 0.0 (0.0-0.7) K/uL Baso # (Auto) 0.0 (0.0-0.1) K/uL Nucleated RBC % 0.0 /100WBC Nucleated RBCs # 0 K/uL Lactate 0.4 (0.20-2.00) mmol/L Sodium 138 (136-145) mmol/L Potassium 3.5 (3.5-5.1) mmol/L Chloride 102 (98-107) mmol/L Carbon Dioxide 26.5 (21.0-32.0) mmol/L BUN 8 (7.0-18.0) mg/dL Creatinine 0.9 (0.6-1.0) mg/dL Est Cr Clr Drug Dosing 58.49 mL/min Estimated GFR (MDRD) > 60.0 ml/min Glucose 121 H (74-106) mg/dL Calcium 8.4 L (8.5-10.1) mg/dL Total Bilirubin 0.4 (0.2-1.0) mg/dL AST 15 (15-37) IU/L ALT 22 (14-63) IU/L Alkaline Phosphatase 82 (46-116) U/L Total Protein 6.9 (6.4-8.2) g/dL Albumin 2.9 L (3.4-5.0) g/dL Globulin 4.0 (2.6-4.0) g/dL Albumin/Globulin Ratio 0.7 L (0.9-1.6) Urine Color Urine Appearance Urine pH (5.0-8.0) Ur Specific [place] (1.001-1.035) Urine Protein (NEGATIVE) mg/dL Urine Glucose (UA) (NEGATIVE) mg/dL Urine Ketones (NEGATIVE) mg/dL Urine Occult Blood (NEGATIVE) Urine Nitrite (NEGATIVE) Urine Bilirubin (NEGATIVE) Urine Urobilinogen (<2.0) EU/dL Ur Leukocyte Esterase (NEGATIVE) Urine RBC (0-2/HPF) Urine WBC (0-5/HPF) Ur Epithelial Cells (NONE-FEW) Urine Bacteria (NEGATIVE) Urine Mucus (NONE-MOD) 04/19/19 Range/Units 02:51 WBC (4.0-11.0) K/uL RBC (4.30-5.90) M/uL Hgb (12.0-16.0) g/dL Hct (36.0-46.0) % MCV (80.0-98.0) fL MCH (27.0-32.0) pg MCHC (31.0-37.0) g/dL RDW Std Deviation (28.0-62.0) fl RDW Coeff of Evi (11.0-15.0) % Plt Count (150-400) K/uL MPV (7.40-12.00) fL Neut % (Auto) (48.0-80.0) % Lymph % (Auto) (16.0-40.0) % Ralls % (Auto) (0.0-15.0) % Eos % (Auto) (0.0-7.0) % Baso % (Auto) (0.0-1.5) % Neut # (Auto) (1.4-5.7) K/uL Lymph # (Auto) (0.6-2.4) K/uL Ralls # (Auto) (0.0-0.8) K/uL Eos # (Auto) (0.0-0.7) K/uL Baso # (Auto) (0.0-0.1) K/uL Nucleated RBC % /100WBC Nucleated RBCs # K/uL Lactate (0.20-2.00) mmol/L Sodium (136-145) mmol/L Potassium (3.5-5.1) mmol/L Chloride (98-107) mmol/L Carbon Dioxide (21.0-32.0) mmol/L BUN (7.0-18.0) mg/dL Creatinine (0.6-1.0) mg/dL Est Cr Clr Drug Dosing mL/min Estimated GFR (MDRD) ml/min Glucose (74-106) mg/dL Calcium (8.5-10.1) mg/dL Total Bilirubin (0.2-1.0) mg/dL AST (15-37) IU/L ALT (14-63) IU/L Alkaline Phosphatase (46-116) U/L Total Protein (6.4-8.2) g/dL Albumin (3.4-5.0) g/dL Globulin (2.6-4.0) g/dL Albumin/Globulin Ratio (0.9-1.6) Urine Color YELLOW Urine Appearance HAZY Urine pH 5.5 (5.0-8.0) Ur Specific [place] 1.025 (1.001-1.035) Urine Protein TRACE H (NEGATIVE) mg/dL Urine Glucose (UA) NEGATIVE (NEGATIVE) mg/dL Urine Ketones 15 H (NEGATIVE) mg/dL Urine Occult Blood NEGATIVE (NEGATIVE) Urine Nitrite NEGATIVE (NEGATIVE) Urine Bilirubin NEGATIVE (NEGATIVE) Urine Urobilinogen 0.2 (<2.0) EU/dL Ur Leukocyte Esterase SMALL H (NEGATIVE) Urine RBC 0-2 (0-2/HPF) Urine WBC 10-15 (0-5/HPF) Ur Epithelial Cells MODERATE (NONE-FEW) Urine Bacteria FEW (NEGATIVE) Urine Mucus LIGHT (NONE-MOD) Meds: Medications Generic Name Dose Route Start Last Admin Trade Name Freq PRN Reason Stop Dose Admin Levofloxacin/Dextrose 500 mg/ 100 mls @ 100 mls/hr 04/19/19 04:06 Premix IV 04/19/19 05:05 ONETIME ONE Sodium Chloride 10 ml 04/19/19 01:40 Saline Flush FLUSH ASDIRECTED PRN Keep Vein Open Sodium Chloride 2.5 ml 04/19/19 01:40 Saline Flush FLUSH ASDIRECTED PRN Keep Vein Open Discontinued Medications Generic Name Dose Route Start Last Admin Trade Name Freq PRN Reason Stop Dose Admin Sodium Chloride 1,000 mls @ 999 mls/hr 04/19/19 01:41 04/19/19 02:18 Normal Saline IV 04/19/19 02:41 999 mls/hr STAT ONE Administration Iopamidol 100 ml 04/19/19 03:36 04/19/19 03:36 Isovue Multipack-370 (76%) IVPUSH 04/19/19 03:37 100 ml ONETIME STA Administration Ketorolac Tromethamine 30 mg 04/19/19 01:41 04/19/19 02:20 Toradol IVPUSH 04/19/19 01:42 30 mg ONETIME ONE Administration Morphine Sulfate 2 mg 04/19/19 01:41 04/19/19 02:21 Morphine IVPUSH 04/19/19 01:42 2 mg ONETIME ONE Administration Ondansetron HCl 4 mg 04/19/19 01:41 04/19/19 02:18 Zofran IVPUSH 04/19/19 01:42 4 mg ONETIME ONE Administration Departure - Departure Time of Disposition: 04:16 Disposition: Home, Self-Care 01 Condition: Good Clinical Impression: Pyelonephritis - Discharge Information Referrals: Angel,Ginny A, [employer] [Primary Care Provider] - Forms: ED Department Discharge Additional Instructions: The following information is given to patients seen in the emergency department who are being discharged to home. This information is to outline your options for follow-up care. We provide all patients seen in our emergency department with a follow-up referral. The need for follow-up, as well as the timing and circumstances, are variable depending upon the specifics of your emergency department visit. If you don't have a primary care physician on staff, we will provide you with a referral. We always advise you to contact your personal physician following an emergency department visit to inform them of the circumstance of the visit and for follow-up with them and/or the need for any referrals to a consulting specialist. The emergency department will also refer you to a specialist when appropriate. This referral assures that you have the opportunity for followup care with a specialist. All of these measure are taken in an effort to provide you with optimal care, which includes your followup. Under all circumstances we always encourage you to contact your private physician who remains a resource for coordinating your care. When calling for followup care, please make the office aware that this follow-up is from your recent emergency room visit. If for any reason you are refused follow-up, please contact the [facility] emergency department at and ask to speak to the emergency department charge nurse. [address] [place] [address] Please connect and follow-up with your provider at [facility] for follow-up care and he will be contacted if your culture results reveal a change in care plan. Please take the antibiotics, Levaquin, that you have been prescribed and stopped taking your current antibiotic nitrofurantoin. Use [id number] Tylenol and ibuprofen for pain management along with the tramadol you have been prescribed as needed. Return to ER as needed and as discussed. Please push hydration - My Orders Last 24 Hours: My Active Orders 04/19/19 01:40 Sodium Chloride 0.9% [Saline Flush] 10 ml FLUSH ASDIRECTED PRN Sodium Chloride 0.9% [Saline Flush] 2.5 ml FLUSH ASDIRECTED PRN Saline Lock Insert [OM.PC] Stat 04/19/19 02:51 CULTURE URINE [RM] Stat 04/19/19 04:06 Levofloxacin/Dextrose 5%-Water [Levaquin in D5W 500 MG/100 ML] 500 mg Premix Bag 1 bag IV ONETIME - Assessment/Plan Last 24 Hours: My Active Orders 04/19/19 01:40 Sodium Chloride 0.9% [Saline Flush] 10 ml FLUSH ASDIRECTED PRN Sodium Chloride 0.9% [Saline Flush] 2.5 ml FLUSH ASDIRECTED PRN Saline Lock Insert [OM.PC] Stat 04/19/19 02:51 CULTURE URINE [RM] Stat 04/19/19 04:06 Levofloxacin/Dextrose 5%-Water [Levaquin in D5W 500 MG/100 ML] 500 mg Premix Bag 1 bag IV ONETIME
[2019-04-19 03:05] LABS: BLOOD UREA NITROGEN,BUN 8 mg/dL (7.0-18.0); CARBON DIOXIDE,CO2 26.5 mmol/L (21.0-32.0); CHLORIDE,CL 102 mmol/L (98-107); GLUCOSE RANDOM 121 mg/dL (74-106); POTASSIUM,K 3.5 mmol/L (3.5-5.1); SODIUM,NA 138 mmol/L (136-145)
[2019-04-19] MEDS ORDERED: Iopamidol 755 MG/ML 500 ML Multipack Bottle IVPUSH STA (03:36)
--- NOTE | 2019-04-19 03:42 | CR ---
INDICATION: Chest pain, shortness of breath TECHNIQUE: Chest radiograph 1 view COMPARISON: None FINDINGS: Mediastinum: The mediastinum is normal in appearance. The heart silhouette is normal in size and morphology. Lung: Both lungs are unremarkable in appearance. No sign of pleural effusion seen. No pneumothorax is identified. IMPRESSION: 1. No acute cardiopulmonary disease is seen. Dictated by: Morro Szymanski MD @ 04/19/2019 03:41:09 (Electronically Signed)
--- NOTE | 2019-04-19 03:55 | CT ---
INDICATION: Abdomen, pelvis pain, urinary tract infection, bladder infection TECHNIQUE: CT Abdomen and pelvis with i.v. contrast. Coronal and sagittal reformats were obtained. CONTRAST: 100 mL Isovue 370 COMPARISON: None FINDINGS: Lower chest: Unremarkable. Liver: Several scattered liver cysts are present measuring up to 1 cm. Spleen: Unremarkable. Pancreas: Unremarkable. Gallbladder: Unremarkable. Kidney: Mild right perinephric edema is present with a region of decreased cortical enhancement seen in the right upper pole measuring 2.4 cm. There are densities present within the renal pelvis bilaterally, likely due to excreted contrast. Adrenal: Unremarkable. Bowel: Unremarkable. The appendix is normal in appearance and size. The appendix is best seen on coronal image 44. Vascular: Unremarkable. Lymph: Unremarkable. Peritoneum: Unremarkable. No pneumoperitoneum is seen. Trace amount of ascites is present and is likely physiologic in origin. Pelvis: The patient is status post prior hysterectomy. Soft tissue: Unremarkable. Bone: A 1.5 cm sclerotic lesion is seen in the right acetabulum. IMPRESSIONS: 1. Mild right perinephric edema is present with a region of decreased cortical enhancement seen in the right upper pole measuring 2.4 cm. Findings are suspicious for focal pyelonephritis. Imaging follow-up is recommended to document resolution after appropriate medically therapy and to exclude the less likely possibility of a renal mass. 2. A 1.5 cm sclerotic lesion is seen in the right acetabulum. This may represent a giant bone island. Further assessment with bone scan or MRI may be helpful if the patient has a history of primary malignancy. Dictated by Morro Szymanski MD @ 04/19/2019 3:53:20 AM Please note that all CT scans at this facility use dose modulation, iterative reconstruction, and/or weight-based dosing when appropriate to reduce radiation dose to as low as reasonably achievable. Dictated by: Morro Szymanski MD @ 04/19/2019 03:53:24 (Electronically Signed)
[2019-04-19] MEDS ORDERED: Levofloxacin/Dextrose 5%-Water 500 MG in Premix Bag 1 BAG IV ONE (04:06)
[2019-04-19 04:25] VITALS: BP 123/78; PULSE 72
== END 2019-04-19 05:25 | disposition home or self-care (01) ==
LOC: MW.ED 01:20
DX: N12 Tubulo-interstitial nephritis, not specified as acute or chronic (principal); I10 Essential (primary) hypertension; Z90.710 Acquired absence of both cervix and uterus
CPT/HCPCS: 36415; 71045; 74177; 80053; 81001; 83605; 85025; 87086; 96361; 96365; 96375; 99284; J1885; J1956; J2270; J2405; J7040; Q9967

== ENCOUNTER 2019-09-20 09:06 | Emergency (ER) | payer SELFPAY ==
--- NOTE | 2019-09-20 10:26 | EDM.PDOC ---
ED HPI GENERAL MEDICAL PROBLEM - General Chief Complaint: Respiratory Problem Stated Complaint: CHEST CONGESTION/COUGH Time Seen by Provider: 09/20/19 10:16 Source of Information: Reports: Patient History Limitations: Reports: No Limitations - History of Present Illness INITIAL COMMENTS - FREE TEXT/NARRATIVE: HISTORY AND PHYSICAL: History of present illness: Patient is a 49-year-old female presents to the ED with complaint of cough. She states she has had a cough for the past week and has since developed a pain in her lower chest with coughing. She reports feeling short of breath when coughing. Denies fevers, chills, nausea, vomiting, diarrhea. She smokes 1/2ppd x 20 years. Review of systems: As per history of present illness and below otherwise all systems reviewed and negative. Past medical history: As per history of present illness and as reviewed below otherwise noncontributory. Surgical history: As per history of present illness and as reviewed below otherwise noncontributory. Social history: No reported history of drug or alcohol abuse. Family history: As per history of present illness and as reviewed below otherwise noncontributory. Physical exam: General: Patient sitting comfortably in no acute distress and nontoxic appearing HEENT: Atraumatic, normocephalic, pupils reactive, negative for conjunctival pallor or scleral icterus, mucous membranes moist, throat clear, neck supple, nontender, trachea midline. No meningeal signs. Lungs: Clear to auscultation, breath sounds equal bilaterally, chest wall tenderness just below both breasts bilaterally. Heart: S1S2, regular, negative for clicks, rubs, or overt murmur. Abdomen: Soft, nondistended, nontender. Negative for masses or hepatosplenomegaly. Negative for costovertebral tenderness. No rigidity, rebound , guarding. Pelvis: Stable nontender. Genitourinary: Deferred. Rectal: Deferred. Extremities: Atraumatic, negative for cords or calf pain. Neurovascular unremarkable. Neuro: Awake, alert, oriented. Cranial nerves II through XII unremarkable. Cerebellum unremarkable. Motor and sensory unremarkable throughout. Exam nonfocal. Notes: Diagnostics: CXR, declined influenza Therapeutics: none Prescriptions: Azithromycin, ventolin inhaler, tessalon perles Impression: Acute bronchitis Plan: Take medications as instructed Tylenol and ibuprofen as needed Follow-up with primary care provider Return to ED as needed as discussed Definitive disposition and diagnosis as appropriate pending reevaluation and review of above. Left Ribcage Pain Score (Numeric/FACES): 6 - Related Data Allergies Allergy/AdvReac Type Severity Reaction Status Date / Time No Known Allergies Allergy Verified 09/20/19 09:19 Home Meds: Home Meds Albuterol [Ventolin HFA] 1 puff INH Q4H #1 inhaler 09/20/19 [Rx] Azithromycin [Zithromax] 250 mg PO ASDIRECTED #1 dosepk 09/20/19 [Rx] Benzonatate [Tessalon Perle] 100 mg PO TID #15 capsule 09/20/19 [Rx] lisinopriL [Lisinopril] 25 mg PO DAILY 09/20/19 [History] Past Medical History HEENT History: Reports: Other (See Below) Other HEENT History: wears glasses Cardiovascular History: Reports: Hypertension Respiratory History: Reports: Asthma Gastrointestinal History: Reports: Hiatal Hernia Other Gastrointestinal History: has Hepatitis C Genitourinary History: Reports: None 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: Musculoskeletal History: Reports: Arthritis, Back Pain, Chronic, Fibromyalgia, Neck Pain, Chronic Neurological History: Reports: Migraines Psychiatric History: Reports: Anxiety, Bipolar, Depression, PTSD, Schizophrenia Endocrine/Metabolic History: Reports: None 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 Hematologic History: Reports: None Immunologic History: Reports: None Oncologic (Cancer) History: Reports: None Dermatologic History: Reports: None - Infectious Disease History Infectious Disease History: Reports: Chicken Pox, Hepatitis C - Past Surgical History Head Surgeries/Procedures: Reports: None HEENT Surgical History: Reports: None Cardiovascular Surgical History: Reports: None Respiratory Surgical History: Reports: None GI Surgical History: Reports: None Female Surgical History: Reports: Hysterectomy, Tubal Ligation Endocrine Surgical History: Reports: None Neurological Surgical History: Reports: None Musculoskeletal Surgical History: Reports: None Oncologic Surgical History: Reports: None Dermatological Surgical History: Reports: None Social & Family History - Family History Family Medical History: Noncontributory - Tobacco Use Smoking Status *Q: Current Every Day Smoker Years of Tobacco use: 30 Packs/Tins Daily: 1 - Caffeine Use Caffeine Use: Reports: Coffee, Soda - Recreational Drug Use Recreational Drug Use: No ED ROS GENERAL - Review of Systems Review Of Systems: Comprehensive ROS is negative, except as noted in HPI. ED EXAM, GENERAL - Physical Exam Exam: See Below (see dictation) Course - Vital Signs Last Recorded V/S: Last Vital Signs Temp 99.6 F 09/20/19 09:17 Pulse 71 09/20/19 09:17 Resp 20 09/20/19 09:17 BP 130/78 09/20/19 09:17 Pulse Ox 98 09/20/19 09:17 - Orders/Labs/Meds Orders: Active Orders 24 hr Category Date Time Status INFLUENZA A+B AG SCREEN [RM] Stat Lab 09/20/19 09:54 Ordered Departure - Departure Time of Disposition: 10:56 Disposition: Home, Self-Care 01 Condition: Good Clinical Impression: Acute bronchitis - Discharge Information Prescriptions: Albuterol [Ventolin HFA] 1 puff INH Q4H #1 inhaler Azithromycin [Zithromax] 250 mg PO ASDIRECTED #1 dosepk Benzonatate [Tessalon Perle] 100 mg PO TID #15 capsule Referrals: PCP,Not In Area [Primary Care Provider] - Forms: ED Department Discharge Additional Instructions: The following information is given to patients seen in the emergency department who are being discharged to home. This information is to outline your options for follow-up care. We provide all patients seen in our emergency department with a follow-up referral. The need for follow-up, as well as the timing and circumstances, are variable depending upon the specifics of your emergency department visit. If you don't have a primary care physician on staff, we will provide you with a referral. We always advise you to contact your personal physician following an emergency department visit to inform them of the circumstance of the visit and for follow-up with them and/or the need for any referrals to a consulting specialist. The emergency department will also refer you to a specialist when appropriate. This referral assures that you have the opportunity for follow-up care with a specialist. All of these measure are taken in an effort to provide you with optimal care, which includes your follow-up. Under all circumstances we always encourage you to contact your private physician who remains a resource for coordinating your care. When calling for follow-up care, please make the office aware that this follow-up is from your recent emergency room visit. If for any reason you are refused follow-up, please contact the [facility] Emergency Department at and asked to speak to the emergency department charge nurse. CURT [facility] [address] [place] [address] [facility] [address] [place] [id number] Take medications as instructed Tylenol and ibuprofen as needed Follow-up with primary care provider Return to ED as needed as discussed Sepsis Event Note - Evaluation Sepsis Screening Result: No Definite Risk - Focused Exam Vital Signs: Vital Signs Temp Pulse Resp BP Pulse Ox 09/20/19 09:17 99.6 F 71 20 130/78 98 Date Exam was Performed: 09/20/19 Time Exam was Performed: 10:59 - My Orders Last 24 Hours: My Active Orders 09/20/19 09:54 INFLUENZA A+B AG SCREEN [RM] Stat - Assessment/Plan Last 24 Hours: My Active Orders 09/20/19 09:54 INFLUENZA A+B AG SCREEN [RM] Stat
--- NOTE | 2019-09-20 10:46 | CR ---
Chest: 2 views of the chest were obtained. Comparison: Previous chest x-ray of 04/19/90. Heart size and mediastinum are normal. Lungs are clear. Bony structures are unremarkable. Impression: 1. Nothing acute is seen on 2 view chest x-ray. Diagnostic code #1 This report was dictated in [place] Standard Time
[2019-09-20 11:24] VITALS: BP 129/78; PULSE 88
== END 2019-09-20 11:20 | disposition home or self-care (01) ==
LOC: MW.ED 09:06
DX: J20.9 Acute bronchitis, unspecified (principal); I10 Essential (primary) hypertension; J45.909 Unspecified asthma, uncomplicated; F17.210 Nicotine dependence, cigarettes, uncomplicated; Z79.899 Other long term (current) drug therapy
CPT/HCPCS: 71046; 71046-26; 99285-25